=== PATIENT | male | born 1940 | race Caucasian/White ===

== ENCOUNTER 2018-01-08 14:58 | Emergency (ER) | END 2018-01-08 18:35 | disposition home or self-care (01) ==

== ENCOUNTER → 2018-08-27 | Outpatient (CLI) | payer MEDICARE, OTHER ==
[~2018-08-27] MED LIST: ASPI81TA52 PO; ATOR20TA38 PO; BEN25 PO; BENA20TA4 PO; CARV6.2579 PO; CLOP75TA27 PO; FAMO-96 PO; FINA5TAB4 PO; FOLI-49 PO; INSU100V23 SC; LANT3I SC; METF500T24 PO; TAMS0.4C2 PO; TRAZ150T65 PO
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
--- NOTE | 2018-08-28 17:07 | RADRPT ---
PROCEDURE: XR Left Hip and pelvis. CLINICAL INDICATION: Left hip pain. Pelvic pain. Postop. TECHNIQUE: Three views. Frontal pelvis. Frontal and lateral left hip. COMPARISON: No prior studies are available for comparison. FINDINGS: There is no fracture or dislocation. Vascular calcifications are present consistent with atherosclerosis. There is a left hip total arthroplasty which appears satisfactory. There are moderate degenerative changes of the right hip with joint space narrowing and osteophytes. There is no lytic or blastic lesion. The upper pelvis is not included on the image. IMPRESSION: 1. Satisfactory postoperative appearance of the left hip. 2. Moderate degenerative changes of the right hip. 3. Atherosclerosis. RPTAT: QQ .Abebe Li MD, MD Date Time Electronically viewed and signed by .Abebe Li MD, on 08/28/2018 17:06 .R/
== END | disposition home or self-care (01) ==
LOC: HKI 11:54
PROVIDERS: ATTEND Orthopaedic Surgery Adult Reconstructive Orthopaedic Surgery
DX: Z47.1 Aftercare following joint replacement surgery (principal); Z96.642 Presence of left artificial hip joint
CPT/HCPCS: 73502; G0463

== ENCOUNTER → 2018-10-08 | Outpatient (CLI) | payer MEDICARE, OTHER ==
--- NOTE | 2018-10-08 18:27 | CONS ---
Consult Date/Type/Reason Admit Date/Time Initial Consult Date Date/Time of Note DATE: 10/08/18 TIME: 18:13 Subjective 78-year-old male following up today for further evaluation treatment for his left total hip arthroplasty and thigh pain. He had a left total hip arthroplasty approximately 5 years ago at [facility]. At last visit work- up for infection was begun secondary to concern of septic versus aseptic loosening of the total hip. He also presented with significant GT and IT band tendinitis. 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 He has been treated in the last 3 weeks for an ulcer. The patient denies any fevers and chills. States his pain is overall worse than last visit. Denies any groin pain. However some days he ambulates well with a walker with minimal pain. Objective Exam General: Awake, alert, in no acute distress, pleasant and cooperative Heart: regular rhythm Lungs: breathing comfortably, no tachypnea or dyspnea Musculoskeletal: Well developed male in no apparent distress but slightly to moderately disheveled. Gait demonstrates an antalgic, and short stride components and large short leg component. Standing, the pelvis is oblique and supine there is a true leg length discrepancy, with the left leg 35 cm short. There is tenderness over The mid and distal IT band. ----- Range of motion: Flexion: 60 Extension: 0 Internal rotation: 10 External rotation: 20 Abduction: 20 Adduction: Midline ----- Sitting there is no pelvic obliquity. Pain at the extremes of motion of the affected hip. Skin was intact throughout both lower extremities. Sensation intact to light touch in a sural, saphenous, deep peroneal, superficial peroneal, medial and lateral plantar nerve distribution. Neurovascular exam showed 5/5 strength in the abductors, quads, EHL/tibialis anterior/gastroc. Difficult to palpate pulses bilaterally. Feet are warm to touch. Chronic vascular changes starting the distal tibia. Results/Medications Home Meds Active Scripts Famotidine* (Pepcid*) 20 Mg Tablet, 20 MG PO BID, #10 TAB Prov:MOON BECERRA DO 06/17/15 Diphenhydramine Hcl* (Benadryl*) 25 Mg Cap, 25 MG PO TID, #14 CAP Prov:MOON BECERRA DO 06/17/15 Reported Medications Insulin Glargine* (Lantus*) 100 Unit/Ml Soln, 0 SC DAILY, #1 VIAL 06/17/15 Trazodone Hcl* (Desyrel*) 150 Mg Tablet, 150 MG PO QHS, #30 TAB 06/17/15 Finasteride* (Finasteride*) 5 Mg Tablet, 5 MG PO DAILY, TAB 06/17/15 Clopidogrel Bisulfate (Clopidogrel) 75 Mg Tablet, 75 MG PO DAILY, #30 TAB 06/17/15 Atorvastatin Calcium* (Atorvastatin Calcium*) 20 Mg Tablet, 20 MG PO QHS, #30 TAB 06/17/15 Carvedilol* (Carvedilol*) 6.25 Mg Tablet, 6.25 MG PO BID, #60 TAB 06/17/15 Tamsulosin Hcl* (Tamsulosin Hcl*) 0.4 Mg Cap.er.24h, 0.4 MG PO DAILY, CAP 06/17/15 Aspirin (Low Dose Aspirin) 81 Mg Tablet.dr, 81 MG PO DAILY, #30 TAB 06/17/15 Benazepril Hcl* (Benazepril Hcl*) 20 Mg Tablet, 20 MG PO BID, #60 TAB 06/17/15 Metformin Hcl* (Metformin Hcl*) 500 Mg Tablet, 500 MG PO WITH BREAKFAST, #30 TAB 06/17/15 Folic Acid* (Folic Acid*) 1 Mg Tablet, 1 MG PO DAILY, TAB 06/17/15 Insulin Regular, Human* (Novolin R*) 100 U/Ml Vial, 0 SC SLIDING SCALE AC, VIAL 06/17/15 Imaging Xrays obtained in clinic today and personally reviewed by myself: AP pelvis and AP/Lat of the left hip demonstrate hip s/p ALICIA with hip reduced. The acetabular component has a little to no anteversion on the AP pelvis. Abduction angle is within acceptable limits. There appears to be some sort of bone graft medially to the cup. There remains a large medial wall osteophyte. The cup is lateralized. There are possible signs of loosening of the cup. The femoral stem appears to be undersized and subsided down to the level of the lesser trochanter. Unclear if this is acute or how it was implanted at the time of surgery. There appears to be signs of loosening around the stem. There is no clear bony ingrowth or on growth. The left hip is significantly shorter than the right hip. There is decreased offset. No signs of wear, osteolysis, or fracture. No change from previous x-ray done in clinic. 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 Infection work-up is concerning for possible infection. Labs 08/27/17 WBC: 6.2 (3.8-10.8) ESR: 43 (<20) CRP: 0.3 (<8.0) HgbA1c: 8.4 Given the elevated ESR infection work-up needs to be completed. I recommended the patient to undergo aspiration of the left hip under fluoroscopy. This will be sent for cell count, culture, alpha defensin. If it is positive for infection I will need to discuss a two-stage revision with the patient. If it is negative for infection the patient will need to be optimized prior to any revision. This includes decreasing his HgbA1c <7.0 and having all his diabetic foot ulcers treated and resolved. In the meantime he would begin physical therapy for the IT band tendinitis and GT bursitis Plan for left hip aspiration. DENITA CAICEDO MD Oct 08, 2018 18:27
--- NOTE | 2018-10-09 03:10 | RADRPT ---
PROCEDURE: XR pelvis and left hip CLINICAL INDICATION: Pain TECHNIQUE: AP pelvis and AP and frog lateral views of the left hip were performed. COMPARISON: None. FINDINGS: There is a total left hip prosthesis in place without dislocation or loosening. No evidence of acute fractures. 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 Bones are osteopenic. No focal bony marita tic or lytic lesions. The soft tissues are unremarkable. IMPRESSION: 1. Unremarkable total left hip prosthesis. 2. No acute fractures or malalignment. 3. 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 RPTAT:AAJJ Physician Glenna Date Time Electronically viewed and signed by Ava Maria Physician on 10/09/2018 03:09 /
== END | disposition home or self-care (01) ==
LOC: HKI 12:31
PROVIDERS: ATTEND Orthopaedic Surgery Adult Reconstructive Orthopaedic Surgery
DX: Z47.1 Aftercare following joint replacement surgery (principal); Z96.642 Presence of left artificial hip joint
CPT/HCPCS: 73502; G0463